=== PATIENT | female | born 1950 | race Caucasian/White ===

== ENCOUNTER 2019-04-25 10:31 | Emergency (ER) | payer MEDICARE ==
[2019-04-25 11:35] VITALS: BP 153/70
--- NOTE | 2019-04-25 12:01 | UC ---
Abdominal Pain Female HPI - HPI Summary HPI Summary: Left lower abdominal pain for three days. Pt has hx of diverticulitis. No vomiting or diarrhea. last bm this was normal per pt. No fever she is aware of. wanted antibiotics so she could go back to hospital where her is. - History of Current Complaint Chief Complaint: UCAbdominalPain Stated Complaint: ABD PAIN,(?DIVERTICULITIS) Time Seen by Provider: 04/25/19 11:46 Hx Obtained From: Patient Pain Intensity: 7 Pain Scale Used: 0-10 Numeric Allergies/Adverse Reactions: Allergies Allergy/AdvReac Type Severity Reaction Status Date / Time [id number] Reductase Allergy Unknown leg pain Verified 04/25/19 11:17 Inhibitor Home Medications: Home Medications Albuterol HFA INHALER* [Ventolin HFA Inhaler*] 2 puff INH Q4H PRN 04/25/19 [ History Confirmed 04/25/19] Aspirin 81 mg CHEW TAB* [Aspirin Low Dose TAB*] 81 mg PO DAILY 04/25/19 [ History Confirmed 04/25/19] Biotin 10,000 mcg PO DAILY 04/25/19 [History Confirmed 04/25/19] Candesartan Cilexetil 32 mg PO DAILY 04/25/19 [History Confirmed 04/25/19] Cinnamon Bark [Cinnamon] 500 mg PO BID 04/25/19 [History Confirmed 04/25/19] Cranberry Fruit Extract [Cranberry Extract] 200 mg PO 04/25/19 [History] Flaxseed Oil 1,000 mg PO DAILY 04/25/19 [History Confirmed 04/25/19] Fluticasone-Salmeterol 250-50* [Advair Diskus 250-50*] 1 puff INH BID 04/25/19 [ History Confirmed 04/25/19] Ibuprofen TAB* [Advil TAB*] 400 mg PO Q6H PRN 04/25/19 [History Confirmed ] Multivitamin [Multivitamins] 1 cap PO DAILY 04/25/19 [History Confirmed 04/25/19 ] [place]-3 Fatty Acids/Fish Oil [Fish Oil 1,000 mg Softgel] 1 each PO DAILY [History Confirmed 04/25/19] amLODIPine TAB* [Norvasc 5 mg TAB*] 2.5 mg PO DAILY 04/25/19 [History Confirmed 04/25/19] metFORMIN* [Glucophage 500 MG TAB *] 500 mg PO BID 04/25/19 [History Confirmed 04/25/19] PMH/Surg Hx/FS Hx/Imm Hx Previously Healthy: Yes Endocrine History: Diabetes Cardiovascular History: Hypertension Respiratory History: Asthma GI/ History: Diverticulitis - Surgical History Surgical History: Yes Surgery Procedure, Year, and Place: hysterectomy. cholycystectomy. right breast bx- benign - Family History Known Family History: Positive: Non-Contributory - Social History Alcohol Use: Daily Alcohol Amount: wine with dinner Substance Use Type: None Smoking Status (MU): Never Smoked Tobacco Review of Systems All Other Systems Reviewed And Are Negative: Yes Constitutional: Positive: Chills Gastrointestinal: Positive: Abdominal Pain. Negative: Vomiting, Diarrhea, Nausea Physical Exam Triage Information Reviewed: Yes Appearance: Well-Appearing Vital Signs: Initial Vital Signs Temp 98.3 F 04/25/19 11:25 Pulse 94 04/25/19 11:25 Resp 18 04/25/19 11:25 BP 153/70 04/25/19 11:25 Pulse Ox 98 04/25/19 11:25 Vital Signs Reviewed: Yes Respiratory Exam: Normal Cardiovascular Exam: Normal Abdomen Description: Positive: Soft, Guarding - LLQ. Negative: CVA Tenderness ( R), CVA Tenderness (L) Neurological: Positive: Alert Abd Pain Female Course/Dx - Course Course Of Treatment: LLQ in a pt w/ hx of diverticulitis. I explained to be safe she should really get a CT of her ABD which we are unable to do here at the setting. Her vitals are stable, bp slightly elevated. On exam some guarding noted. She will go to ED in [place] since that is where her is hospitalized. - Differential Dx/Diagnosis Differential Diagnosis: Diverticulitis, Irritable Bowel Syndrome, Pelvic Inflammatory Disease, Peptic Ulcer Disease, Other Provider Diagnosis: LLQ pain Discharge ED - Sign-Out/Discharge Documenting (check all that apply): Patient Departure All imaging exams completed and their final reports reviewed: No Studies - Discharge Plan Condition: Stable Disposition: HOME-RECOMMEND TO ED Patient Education Materials: Diverticulitis (ED) Referrals: Sylvia Oneill MD [Primary Care Provider] - Additional Instructions: pLEASE go to ED for evaluation as we do not have necessary equipment here for you. As of now you are stable and an ambulance does not have to be called. Please know this condition can worsen. - Billing Disposition and Condition Condition: STABLE Disposition: Home-Recommend to ED
== END 2019-04-25 12:05 | disposition home health service (06) ==
LOC: UCCORT 10:31
DX: R10.32 Left lower quadrant pain (principal); E11.9 Type 2 diabetes mellitus without complications; I10 Essential (primary) hypertension; J45.909 Unspecified asthma, uncomplicated; Z91.09 Other allergy status, other than to drugs and biological substances; Z79.82 Long term (current) use of aspirin; Z79.84 Long term (current) use of oral hypoglycemic drugs; Z79.899 Other long term (current) drug therapy
CPT/HCPCS: 99202; G0463